=== PATIENT | female | born 1985 | race Caucasian/White ===

== ENCOUNTER → 2016-10-06 | Outpatient (CLI) | payer OTHER ==
--- NOTE | 2016-10-06 14:03 | REP ---
ABDOMINAL SERIES: Supine and erect views of the abdomen demonstrate no free air and no evidence for bowel obstruction. No dilated small bowel loops are seen. Phlebolith is seen in the inferior left pelvis. Visualized osseous structures appear unremarkable. An accompanying view of the chest demonstrates no acute infiltrate. Heart is normal in size and the mediastinal silhouette is unremarkable. IMPRESSION: Essentially negative abdominal series. Signed by Radu Aleman MD 10/06/2016 04:22 P
== END ==
LOC: M LRY 12:54
PROVIDERS: ATTEND Nurse Practitioner Family
DX: R11.10 Vomiting, unspecified (principal)

== ENCOUNTER → 2016-10-06 | Outpatient (REF) | payer OTHER | LOC: M SFHCLERA 12:36 | PROVIDERS: ATTEND Nurse Practitioner Family | DX: R11.10 Vomiting, unspecified (principal) ==

== ENCOUNTER → 2017-08-18 | Outpatient (CLI) | payer OTHER ==
[2017-08-18 16:35] LABS: BASO # 0.1 10^3/uL (0.0-0.2); BASO % 0.7 % (0.0-1.0); EOS # 0.1 10^3/uL (0.0-0.50); EOS % 1.1 % (0.0-3.0); HEMATOCRIT 42.8 % (36.0-47.0); HEMOGLOBIN 14.3 g/dl (12.0-16.0); IMMATURE GRANULOCYTE % 0.3 % (0-3.0); LYMPH # 1.9 10^3/uL (1.5-4.5); LYMPH % 26.8 % (24.0-44.0); MEAN CORPUSCULAR HEMOGLOBIN 29.5 pg (27.0-33.0); MEAN CORPUSCULAR HGB CONC 33.4 g/dl (32.0-36.5); MEAN CORPUSCULAR VOLUME 88.2 fl (80.0-96.0); MONO # 0.6 10^3/uL (0.0-0.8); MONO % 8.3 % (0.0-5.0); NEUTROPHILS # 4.5 10^3/uL (1.8-7.7); NEUTROPHILS % 62.8 % (36.0-66.0); PLATELET COUNT, AUTOMATED 295 10^3/uL (150-450); RED BLOOD COUNT 4.85 10^6/uL (4.00-5.40); RED CELL DISTRIBUTION WIDTH 11.9 % (11.5-14.5); WHITE BLOOD COUNT 7.2 10^3/uL (4.0-10.0)
[2017-08-18 16:42] LABS: ALBUMIN 4.5 GM/DL (3.2-5.2); ALKALINE PHOSPHATASE 52 U/L (45-117); ALT/SGPT 24 U/L (12-78); ANION GAP 5 MEQ/L (8-16); AST/SGOT 16 U/L (7-37); BILIRUBIN,TOTAL 0.5 MG/DL (0.2-1.0); BLOOD UREA NITROGEN 12 MG/DL (7-18); CALCIUM LEVEL 9.3 MG/DL (8.5-10.1); CARBON DIOXIDE LEVEL 26 MEQ/L (21-32); CHLORIDE LEVEL 110 MEQ/L (98-107); CREATININE FOR GFR 0.75 MG/DL (0.55-1.30); GLOMERULAR FILTRATION RATE > 60.0 (>60); GLUCOSE, FASTING 69 MG/DL (70-100); POTASSIUM SERUM 4.4 MEQ/L (3.5-5.1); SODIUM LEVEL 141 MEQ/L (136-145)
== END ==
LOC: M WUC 12:33
DX: Z51.81 Encounter for therapeutic drug level monitoring (principal); Z79.899 Other long term (current) drug therapy; D22.5 Melanocytic nevi of trunk; D22.62 Melanocytic nevi of left upper limb, including shoulder; L70.0 Acne vulgaris; L81.4 Other melanin hyperpigmentation

== ENCOUNTER → 2018-02-12 | Outpatient (CLI) | payer OTHER | LOC: M LRY 17:55 | DX: S59.911A Unspecified injury of right forearm, initial encounter (principal) | CPT/HCPCS: 73090 ==

== ENCOUNTER → 2021-08-25 | Outpatient (CLI) | payer BC ==
[2021-08-25 16:07] LABS: HEMATOCRIT 34.9 % (36.0-47.0); HEMOGLOBIN 11.4 g/dl (12.0-15.5); MEAN CORPUSCULAR HEMOGLOBIN 27.7 pg (27.0-33.0); MEAN CORPUSCULAR HGB CONC 32.7 g/dl (32.0-36.5); MEAN CORPUSCULAR VOLUME 84.9 fl (80.0-96.0); PLATELET COUNT, AUTOMATED 261 10^3/uL (150-450); RED BLOOD COUNT 4.11 10^6/uL (4.00-5.40); WHITE BLOOD COUNT 10.8 10^3/uL (4.0-10.0)
[2021-08-25 16:41] LABS: ALBUMIN 2.9 GM/DL (3.2-5.2); ALT/SGPT 23 U/L (12-78); BILIRUBIN,TOTAL 0.2 MG/DL (0.2-1.0); BLOOD UREA NITROGEN 8 MG/DL (7-18); CALCIUM LEVEL 9.5 MG/DL (8.5-10.1); CARBON DIOXIDE LEVEL 26 MEQ/L (21-32); CHLORIDE LEVEL 108 MEQ/L (98-107); CREATININE FOR GFR 0.45 MG/DL (0.55-1.30); GLOMERULAR FILTRATION RATE > 60.0 (>60); GLUCOSE, FASTING 123 MG/DL (70-100); LDH LACTATE DEHYDROGENASE 150 U/L (84-246); POTASSIUM SERUM 4.1 MEQ/L (3.5-5.1); SODIUM LEVEL 140 MEQ/L (136-145); TOTAL PROTEIN 5.9 GM/DL (6.4-8.2)
== END ==
LOC: M WUC 11:25
PROVIDERS: ATTEND Obstetrics & Gynecology
DX: Z87.59 Personal history of other complications of pregnancy, childbirth and the puerperium (principal); O13.5 Gestational [pregnancy-induced] hypertension without significant proteinuria, complicating the puerperium; Z3A.00 Weeks of gestation of pregnancy not specified

== ENCOUNTER → 2021-09-17 | Outpatient (CLI) | payer BC ==
[2021-09-17 16:15] LABS: BASO % 0.4 % (0.0-1.0); EOS % 0.3 % (0.0-3.0); HEMATOCRIT 35.4 % (36.0-47.0); LYMPH # 1.7 10^3/uL (1.5-5.0); LYMPH % 15.3 % (24.0-44.0); MEAN CORPUSCULAR HEMOGLOBIN 26.1 pg (27.0-33.0); MEAN CORPUSCULAR HGB CONC 31.1 g/dl (32.0-36.5); MEAN CORPUSCULAR VOLUME 83.9 fl (80.0-96.0); MONO # 1.1 10^3/uL (0.0-0.8); MONO % 10.4 % (2.0-8.0); NEUTROPHILS # 7.9 10^3/uL (1.5-8.5); NEUTROPHILS % 72.2 % (36.0-66.0); PLATELET COUNT, AUTOMATED 275 10^3/uL (150-450); RED BLOOD COUNT 4.22 10^6/uL (4.00-5.40); WHITE BLOOD COUNT 10.9 10^3/uL (4.0-10.0)
[2021-09-17 16:27] LABS: ALBUMIN 2.8 GM/DL (3.2-5.2); ALT/SGPT 23 U/L (12-78); BILIRUBIN,TOTAL 0.3 MG/DL (0.2-1.0); BLOOD UREA NITROGEN 9 MG/DL (7-18); CALCIUM LEVEL 9.6 MG/DL (8.5-10.1); CARBON DIOXIDE LEVEL 26 MEQ/L (21-32); CHLORIDE LEVEL 109 MEQ/L (98-107); CREATININE FOR GFR 0.57 MG/DL (0.55-1.30); GLOMERULAR FILTRATION RATE > 60.0 (>60); GLUCOSE, FASTING 69 MG/DL (70-100); POTASSIUM SERUM 4.2 MEQ/L (3.5-5.1); SODIUM LEVEL 139 MEQ/L (136-145); TOTAL PROTEIN 5.7 GM/DL (6.4-8.2); URIC ACID 3.7 MG/DL (2.6-6.0)
== END ==
LOC: M WUC 11:28
PROVIDERS: ATTEND Obstetrics & Gynecology
DX: R03.0 Elevated blood-pressure reading, without diagnosis of hypertension (principal)